=== PATIENT | male | born 1985 | race Caucasian/White ===

== ENCOUNTER 2024-11-21 02:36 | Emergency (ER) | payer MEDICAID, SELFPAY ==
[2024-11-21 02:39] VITALS: BMI 22.8
--- NOTE | 2024-11-21 02:40 | XR_ITS ---
PROCEDURE INFORMATION: Exam: XR Left Ankle Exam date and time: 11/21/2024 2:52 AM Age: 38 years old Clinical indication: Injury or trauma; Other: Sledding accident; Other: Pain TECHNIQUE: Imaging protocol: Radiologic exam of the left ankle. Views: 3 or more views. COMPARISON: CR XR ANKLE LT MIN 3V 11/21/2024 2:52 AM FINDINGS: Bones/joints: Oblique fracture of the distal tibial metaphysis with 1 cm lateral displacement of the distal fragment. Soft tissues: Mild edema of the adjacent soft tissues. IMPRESSION: Oblique fracture of the distal tibial metaphysis with 1 cm lateral displacement of the distal fragment.
--- NOTE | 2024-11-21 02:43 | XR_ITS ---
PROCEDURE INFORMATION: Exam: XR Left Tibia and Fibula Exam date and time: 11/21/2024 2:52 AM Age: 38 years old Clinical indication: Injury or trauma; Other: Sledding accident; Other: Pain; Additional info: Fall ankle fx/dislocation likely TECHNIQUE: Imaging protocol: Radiologic exam of the left tibia and fibula. Views: 2 views. COMPARISON: CR XR TIBIA FIBULA LT 2V 11/21/2024 2:52 AM FINDINGS: Bones/joints: Oblique fracture of the distal tibial metadiaphysis. 1 cm lateral and anterior displacement of the distal fracture fragments. Segmental fracture of the proximal fibula with mild posterior displacement of the segment. Soft tissues: Mild edema of the soft tissues overlying the tibial fracture. IMPRESSION: 1. Oblique fracture of the distal tibial metadiaphysis. 1 cm lateral and anterior displacement of the distal fracture fragment. 2. Segmental fracture of the proximal fibula with mild posterior displacement of the segment.
--- NOTE | 2024-11-21 02:43 | XR_ITS ---
PROCEDURE INFORMATION: Exam: XR Left Foot Exam date and time: 11/21/2024 2:52 AM Age: 38 years old Clinical indication: Injury or trauma; Other: Sledding accident; Other: Pain TECHNIQUE: Imaging protocol: Radiologic exam of the left foot. Views: 3 or more views. COMPARISON: CR XR ANKLE LT MIN 3V 11/21/2024 2:52 AM FINDINGS: Bones/joints: No fracture or dislocation in the foot. (Please refer to the report for the ankle x-ray for description of the tibial fracture). Soft tissues: Normal. IMPRESSION: No acute findings.
[2024-11-21 02:54] VITALS: BP 140/95; PULSE 83; RESP 18; TEMP 36.4; O2SAT 99; BMI 22.8
[2024-11-21] MEDS: HYDROMORPHONE 2MG/ML SYRINGE 0.5 MG IV ×2 (03:01→03:25)
[2024-11-21] MEDS: KETOROLAC 30MG/ML VIAL 30 MG IV (03:01)
--- NOTE | 2024-11-21 03:02 | [facility].EDGENADL ---
Discharge Plan Disposition Patient Disposition: Xfer Short-Term Hosp Condition: Fair Referrals Follow up/Referrals: Provider,Referral, [Primary Care Provider] - See instructions Activity Restrictions/Add. Instructions Additional Instructions/Restrictions: Go directly to [facility]. [address] [place], [place]. Do not make stops along the way. Do not eat or drink on the way. When you arrive, give them the packet and tell them you are a transfer from [facility]. Clinical Impressions Clinical Impression: Closed fracture of distal end of left tibia, Closed fracture of proximal end of left fibula Print Language Print Language: Kinyarwanda Discharge ED Provider: Lieda [facility] HPI General Chief complaint: Extremity Injury, Lower Stated complaint: Broken ankle Time Seen by Provider: 11/21/24 02:37 Mode of Arrival: Wheelchair Source of Information: Patient Limitations: No Limitations Description of Symptoms (Recalled from ER Triage Doc. by RN): pt reports he was sleeding with his daughter at 2am when going down the hill the sled started to tip over and his foot got caught in the snow and pulled it backwards. his left ankle has obvisous deformity. History of Present Illness HPI narrative: 38-year-old male who reports no chronic medical problems, no daily medications, no known drug allergies presents to the ER for complaints of left ankle pain. Patient reports he was sliding around 2 AM, approximately 30 minutes prior to arrival, when the sled started to tip, he caught his foot in the snow, and it pulled backwards. He has an obvious deformity of the left distal lower extremity. He states he can feel his toes but is having tingling. He states he does not have any other injuries or pain, no other complaints or concerns at this time. He denies striking his head or losing consciousness. He does not take blood thinners. No recent illness. Related Data Allergies Allergy/AdvReac Type Severity Reaction Status Date / Time No Known Allergies Allergy Verified 11/21/24 02:39 [facility] Disclaimer: The information contained in this section may have been updated after the patient was seen, as this information can be updated by other users. Social History Smoking Status: Current every day smoker alcohol intake: current alcohol intake frequency: holidays/special occasions only current occupational status: other Travel in the last 8 weeks: None ROS Obtained: Yes Systems reviewed as appropriate & no additional complaints except as documented Per HPI Physical Exam General General appearance: alert and in no apparent distress Head Head exam: atraumatic and normocephalic Eye Eye exam: Present PERRL and EOMI ENT ENT exam: Present mucous membranes moist and other (poor dentition) Neck Neck exam: Present normal inspection and full ROM; Absent tenderness Chest Chest inspection: Present symmetric chest wall rise; Absent tenderness Respiratory Respiratory exam: Present normal lung sounds bilaterally; Absent respiratory distress, wheezes or stridor Cardiovascular Cardiovascular exam: Present regular rate and normal rhythm Abdominal Exam Abdominal exam: Present soft; Absent distention or tenderness Extremities Exam Extremities exam: Present tenderness (Tenderness to palpation of the distal left tibia as well as proximal left lower leg on the fibular side near the knee), joint swelling (Mild swelling of the left ankle, swelling throughout the distal left lower extremity) and other (Ecchymosis along the distal medial left lower extremity near the ankle and the proximal lateral left lower extremity near the knee; obvious deformity at the left ankle); Absent full ROM (Unable to move left ankle secondary to pain) Expanded Lower Extremity Exam Left: Comment: Palpable DP and PT pulses, patient has full movement of the toes, he describes tingling of the toes but has sensation intact. Neurological Exam Neurological exam: Present alert and oriented X3; Absent motor sensory deficit Psychiatric Psychiatric exam: Present normal affect and normal mood Skin Skin exam: Present warm and dry Medical Decision Making Medical Records Screening: Per USPSTF and CDC recommendations, given the prevalence of disease in our region, it is our hospital?s policy to screen for HIV and viral Hepatitis for all patients aged 18 and over and those with ongoing risk factors. Armando Inquiry Pt receiving controlled substance: No Vital Signs: 11/21/24 02:54 Temperature 97.6 F Temperature Source Oral Pulse Rate [Right] 83 Respiratory Rate 18 Blood Pressure [Right Arm] 140/95 H Blood Pressure Mean [Right Arm] 110 02 Sat by Pulse Oximetry 99 Oxygen Delivery Method Room Air Lab Data Lab Results 11/21/24 03:00: PT 11.8, INR 1.06, Sodium 133 L, Potassium 3.4 L, Chloride 99, Carbon Dioxide 27, Anion Gap 10.4, BUN 12, Creatinine 1.00, Estimated Creat Clear 98, Estimated GFR 85, Est GFR ( Amer) 102, Glucose 149 H, Calcium 9.4, Total Bilirubin 1.1, AST 35, ALT 23, Alkaline Phosphatase 93, Total Protein 7.6, Albumin 4.7, Globulin 2.9, Albumin/Globulin Ratio 1.6 11/21/24 03:00 Orders (Tests/Meds): ED MEDICATIONS Discontinued Medications Generic Name Dose Route Start Last Admin Trade Name Troy PRN Reason Stop Dose Admin Fentanyl Citrate 50 mcg 11/21/24 03:28 Fentanyl 250mcg/5ml Vial IV 11/21/24 03:29 ONCE ONE Hydromorphone HCl 0.5 mg 11/21/24 02:44 11/21/24 03:01 Hydromorphone 2mg/Ml Syringe IV 11/21/24 02:45 0.5 mg ONCE ONE Administration Hydromorphone HCl 0.5 mg 11/21/24 03:20 11/21/24 03:25 Hydromorphone 2mg/Ml Syringe IV 11/21/24 03:21 0.5 mg ONCE ONE Administration Ketorolac Tromethamine 30 mg 11/21/24 02:44 11/21/24 03:01 Ketorolac 30mg/Ml Vial IV 11/21/24 02:45 30 mg ONCE ONE Administration ORDERS Category Date Time Status Ankle XR - Left minimum 3 Views [XR ankle LT min 3V] Exams 11/21/24 02:40 Taken Stat XR foot LT min 3V Stat Exams 11/21/24 02:43 Completed XR tibia fibula LT 2V Stat Exams 11/21/24 02:43 Taken CBC w/Auto Diff [Complete Blood Count Auto Diff] Stat Lab 11/21/24 03:00 Received CMP [Comprehensive Metabolic Panel] Stat Lab 11/21/24 03:00 Completed HIV Combo Stat Lab 11/21/24 03:00 Received Hepatitis C Ab Qual. W/ RFX Stat Lab 11/21/24 03:00 Received PT INR [Prothrombin Time INR] Stat Lab 11/21/24 03:00 Completed Medical Decision Narrative: In summary, this otherwise healthy 38-year-old male presents to the emergency department today with left lower extremity injury after sliding accident. On initial evaluation patient is hemodynamically stable, afebrile, he has obvious deformity of the distal left lower extremity with pain to palpation, no findings of open fracture, neurovascularly intact though he does report mild tingling of the toes. Differential diagnosis includes but is not limited to fracture, dislocation, I considered the possibility of developing compartment syndrome but patient does not have pain with passive movement, pallor, he has mild tingling but sensation is otherwise intact, he has easily palpable DP and PT pulses, I do not believe he has compartment syndrome at this time, also considered other neurovascular injury but do not appreciate evidence of this on exam. No other findings of traumatic injury on exam. Based on these concerns, I ordered x-ray imaging of left lower extremity, also ordered basic serum labs. Patient received IV Dilaudid and Toradol initially for treatment and management of pain. Labs personally reviewed demonstrate no actionable abnormalities, no coagulopathy. X-rays personally interpreted demonstrates displaced fracture of the distal left tibia shaft and displaced fracture of the proximal left fibular shaft. See radiology read for final interpretation. Upon viewing the x-rays, prior to radiology interpretation, I called [facility] for transfer since patient has both bone distal lower extremity fracture with high risk of developing compartment syndrome. I spoke with Dr. Armenta who graciously accepted the patient for transfer for orthopedic evaluation to [facility]. Patient was placed in a splint which I personally applied and adjusted. See procedure note for details. He received a dose of IV fentanyl prior to splint application. I recommended to the patient that he be taken by ambulance for pain control, continued monitoring, and expedient transfer. He refused and stated if he had to go by ambulance he would not go. He adamantly requested to go via private vehicle. I believe this is reasonable at this time since patient does not have acute life-threatening pathology, however I did explain to him and his chain saw driver that he must go directly to , make no stops along the way, and he cannot eat or drink along the way. I explained to him the high risk of developing worsening problems including compartment syndrome which could ultimately lead to permanent damage or even loss of limb. He and the chain saw driver indicated understanding. Patient remains hemodynamically stable and tolerated the procedures well for reduction and splinting. He received single dose of oral hydrocodone prior to transfer for continued pain management. Patient was transferred in stable condition via private vehicle with his uncle who is at bedside driving. Procedures Orthopedic Fracture Reduction Fracture #1: Time Out Performed: Yes Side: left Fracture Reduction Location: tibia and fibula Analgesia: other (IV analgesia but not sedation) Technique: direct manipulation Post-reduction neuro exam: no change and other (Patient reports tingling of the toes that is improving, full range of motion of the toes) Post-reduction vascular exam: intact and no change Splint Applied: Yes Patient Tolerated Procedure: well and no complications Orthopedic Splinting/Casting Injury #1: Side: left Lower Extremity Injury Location: lower leg Lower Extremity Immobilizer: posterior splint and stirrup splint Additional Comments: Long-leg splint applied with Ortho-Glass, plaster, soft roll, Cliff wrap. Splint personally applied and adjusted by me. Post Cast/Splinting Neuro Status: no change and other (Patient still reports mild tingling of the toes but it is improving, he has full motor control.) Post Cast/Splinting Vasc Status: intact and no change Critical Care Critical Care Time Critical Care Time: No
[2024-11-21 03:15] LABS: Basophils # 0.1 K/mm3 (0-0.2); Basophils % 0.8 % (0.1-2.0); Eosinophils # 0.3 K/mm3 (0.0-0.4); Hematocrit 44.4 % (42.0-52.0); Hemoglobin 15.7 g/dL (14.1-18.0); Lymphocytes # 3.6 K/mm3 (0.7-4.5); Mean Corpuscular HGB Conc 35.4 g/dL (31.8-35.4); Mean Corpuscular Hemoglobin 30.5 pg (27.0-31.2); Mean Corpuscular Volume 86.2 fl (80-94); Mean Platelet Volume 9.9 fl (7.4-10.4); Monocytes # 0.7 K/mm3 (0.1-1.0); Monocytes % 8.4 % (1.7-9.3); Neutrophils # 3.9 K/mm3 (1.8-7.8); Neutrophils % 45.7 % (37.0-80.0); Platelet Count 269 K/mm3 (142-424); Red Blood Count 5.15 M/mm3 (4.60-6.20); Red Cell Distribution Width 12.1 % (11.5-17.5); White Blood Count 8.6 K/mm3 (4.8-10.8)
[2024-11-21 03:25] LABS: Chloride 99 mmol/L (98-107)
[2024-11-21 03:26] LABS: Albumin Level 4.7 g/dl (3.5-5.0); Potassium 3.4 mmoL/L (3.5-5.1); Sodium 133 mmol/L (136-145)
[2024-11-21 03:28] LABS: Alanine Aminotransferase 23 U/L (12-78); Anion Gap 10.4 mEq/L (5-15); Aspartate Amino Transferase 35 U/L (17-59); Blood Urea Nitrogen 12 mg/dl (9-20); Carbon Dioxide 27 mmol/L (22.0-30.0); Creatinine Clearance Estimated 98 mL/min (50-200); Estimated Glomerular Filt Rate 85 ml/min (>60); GFR (African American) 102 ML/MIN (>60)
[2024-11-21 03:29] LABS: Albumin/Globulin Ratio 1.6 (1.1-1.8); Alkaline Phosphatase 93 U/L (38-126); Bilirubin,Total 1.1 mg/dl (0.2-1.3); Calcium 9.4 mg/dl (8.4-10.2); Globulin 2.9 g/dL (1.3-3.2); Glucose 149 mg/dl (74-100); Total Protein,Serum 7.6 g/dl (6.3-8.2)
[2024-11-21 03:30] LABS: INR 1.06 (0.9-1.1); Prothrombin Time 11.8 seconds (10.1-12.5)
[2024-11-21] MEDS: FENTANYL 250MCG/5ML VIAL 50 MCG IV (04:01)
[2024-11-21] MEDS: HYDROCODONE/APAP 5/325 MG TABLET 1 TAB PO (04:05)
[2024-11-21 04:17] VITALS: BP 146/85; PULSE 78; RESP 22; TEMP 36.6; O2SAT 98
[2024-11-21 04:27] LABS: HIV Combo NEGATIVE (Negative)
[2024-11-21 04:35] LABS: Hepatitis C Ab Qual. W/ RFX NEGATIVE (Negative)
== END 2024-11-21 04:20 | disposition short-term general hospital (02) ==
PROVIDERS: Emergency Provider Emergency Medicine
DX: S82.832A Other fracture of upper and lower end of left fibula, initial encounter for closed fracture (principal); S82.302A Unspecified fracture of lower end of left tibia, initial encounter for closed fracture; M25.572 Pain in left ankle and joints of left foot; Y93.23 Activity, snow (alpine) (downhill) skiing, snowboarding, sledding, tobogganing and snow tubing
CPT/HCPCS: 73590; 73610; 73630; 80053; 85025; 85610; 86803; 87389; 96374; 96375; 99284; J1171; J1885; J3010